=== PATIENT | female | born 2000 | race Caucasian/White ===

== ENCOUNTER → 2022-12-27 | Outpatient (CLI) | payer OTHER ==
[2022-12-27 10:27] LABS: BILIRUBIN,URINE NEGATIVE (NEGATIVE); HEMATOCRIT(ML) 36.6 % (36.0-46.0); HEMOGLOBIN 11.7 g/dL (12.4-14.8); LEUKOCYTE ESTERASE ,URINE NEGATIVE (NEGATIVE); MEAN CORP VOLUME 75.2 fL (78-100); NITRATE,URINE NEGATIVE (NEGATIVE); PH,URINE 5.5 (4.5-8.0); RED BLOOD CELL 4.87 10^6/uL (4.00-5.20); RED CELL DISTRIBUTION WIDTH 16.5 % (11.5-14.5); UROBILINOGEN,URINE 0.2 E.U./dL (0.2); WHITE BLOOD CELL 6.6 10^3/uL (4.5-12.5)
[2022-12-27 10:35] LABS: APPEARANCE,URINE CLEAR; UA COLOR YELLOW
[2022-12-27 10:41] LABS: INR 0.9; PROTHROMBIN PROTIME 9.9 SEC (9.7-11.6)
[2022-12-27 11:16] LABS: ALBUMIN(ML) 3.6 g/dL (3.4-5.0); ALBUMIN/GLOBULIN RATIO 0.947; ANION GAP 13.8; C-REACTIVE PROTEIN 0.08 mg/dL (0.00-5.00); CALCIUM 8.8 mg/dL (8.4-10.5); CREATININE SERUM 0.62 mg/dL (0.59-1.40); EST GFR, NON-AA 122.7 (>/=60); LDL/HDL RATIO 2.6; POTASSIUM 3.8 mmol/L (3.6-5.2)
== END | disposition home or self-care (01) ==
LOC: LAB 10:00
PROVIDERS: ATTEND Nurse Practitioner Family
DX: K62.5 Hemorrhage of anus and rectum (principal); R53.83 Other fatigue
CPT/HCPCS: 36415; 80053; 80061; 81003; 82306; 82607; 82728; 83036; 83550; 84439; 84443; 85027; 85610; 85730; 86038; 86140; 86225; 86235; 86256; 86431; 86677

== ENCOUNTER 2023-02-20 14:48 | Emergency (ER) | payer OTHER ==
[~2023-02-20] VITALS: Ht 157.5 cm; Wt 104.3 kg
[2023-02-20 14:48] VITALS: BP 135/75; PULSE 98; RESP 20; TEMP 98.2; O2SAT 99
[2023-02-20 15:34] LABS: BILIRUBIN,URINE NEGATIVE (NEGATIVE); LEUKOCYTE ESTERASE ,URINE NEGATIVE (NEGATIVE); NITRATE,URINE NEGATIVE (NEGATIVE); PH,URINE 5.5 (4.5-8.0); UROBILINOGEN,URINE 0.2 E.U./dL (0.2)
[2023-02-20 15:43] LABS: APPEARANCE,URINE CLOUDY; UA COLOR YELLOW
[2023-02-20 16:05] LABS: BASOPHIL % 0.4 % (0.0-0.2); EOSINOPHIL # 0.1 10^3/uL (0.0-0.2); EOSINOPHIL % 1.3 % (0.0-5.0); HEMATOCRIT(ML) 36.6 % (36.0-46.0); HEMOGLOBIN 11.9 g/dL (12.4-14.8); IG % 0.3 % (0.00-0.50); LYMPHOCYTES # 4.05 10^3/uL1 (1.2-5.2); LYMPHOCYTES % 39.6 % (24.0-44.0); MEAN CORP HGB CONCENTRATION 32.5 g/dL (33-36.5); MEAN CORP VOLUME 73.8 fL (78-100); MONOCYTES # 0.7 10^3/uL (0.0-0.4); MONOCYTES % 6.7 % (5.0-12.0); NEUTROPHIL # 5.3 10^3/uL (1.8-8.0); NEUTROPHILS % 51.7 % (41.0-85.0); RED BLOOD CELL 4.96 10^6/uL (4.00-5.20); RED CELL DISTRIBUTION WIDTH 16.8 % (11.5-14.5); WHITE BLOOD CELL 10.2 10^3/uL (4.5-12.5)
[2023-02-20 16:18] LABS: INR 0.9; PROTHROMBIN PROTIME 9.8 SEC (9.7-11.6)
[2023-02-20 16:24] LABS: ANION GAP 14.8; CARBON DIOXIDE 23.8 mmol/L (20.0-32); POTASSIUM 3.6 mmol/L (3.6-5.2)
[2023-02-20 16:25] LABS: ALBUMIN(ML) 3.4 g/dL (3.4-5.0); ALBUMIN/GLOBULIN RATIO 0.944; BUN/CREATININE RATIO 15.38 (10.0-20.0); CALCIUM 9.3 mg/dL (8.4-10.5); CREATININE SERUM 0.65 mg/dL (0.59-1.40); EST GFR, NON-AA 116.2 (>/=60)
[2023-02-20 18:25] VITALS: BP 128/82; PULSE 98; RESP 16; TEMP 98.2; O2SAT 98
== END 2023-02-20 18:25 | disposition home or self-care (01) ==
LOC: ER 14:48
DX: O20.9 Hemorrhage in early pregnancy, unspecified (principal); O26.891 Other specified pregnancy related conditions, first trimester; O99.511 Diseases of the respiratory system complicating pregnancy, first trimester; J45.909 Unspecified asthma, uncomplicated; Z3A.01 Less than 8 weeks gestation of pregnancy
CPT/HCPCS: 36415; 76801; 76817; 80053; 81001; 81025; 84702; 85025; 85610; 85730; 86900; 87086; 99284